=== PATIENT | male | born 1965 | race Caucasian/White ===

== ENCOUNTER 2024-03-03 19:38 | Emergency (ER) | payer OTHER, SELFPAY ==
[2024-03-03] VITALS (7 sets, daily range): BP systolic 126–157; BP diastolic 88–102
--- NOTE | 2024-03-03 20:47 | ED.GENMED ---
History of Present Illness
General
Chief Complaint: Blood Pressure Problem
Time Seen by Provider: 03/03/24 20:23
History of Present Illness
History of Present Illness:
58-year-old male history of CAD, hypertension presenting with high blood pressure. Patient states that he has been having episodes of dizziness and lightheadedness for the past 1 month. Patient states that after eating dinner, he felt dizzy and
lightheaded so he took his blood pressure was noted to be 159/94 prompting ED evaluation. Patient denies any chest pain, shortness of breath, headaches, numbness, weakness, tingling, or visual changes. Patient states that he is on lisinopril which
he has been taking as prescribed. Of note, patient states that he still a 'dizziness specialist' today and was told that he has a vestibular issue.
Past History
Past History
ED Past Medical History: CAD, HTN, Hypercholesterolemia and TN
ED Past Surgical History: Cardiac (2 stents)
Social History
Tobacco: Former smoker
Alcohol: None
Drug: None
Personal:
Living: with family
Family History
Family History: Early CAD
Phy Exam
Physical Exam
Physical Exam:
General: Alert, no acute distress
Head: NCAT
Eyes: clear conjunctiva, PERRLA, EOMI. No nystagmus
Neck: supple
Cardiac: regular rate and rhythm, no murmur
Lungs: clear to auscultation bilaterally. No wheezes, rales, or rhonchi. Speaking full unlabored sentences. No respiratory distress.
Abdomen: soft, nondistended nontender. No rebound or guarding.
MSK: no lower extremity edema bilaterally. No deformity
Skin: warm, dry. Not diaphoretic
Neuro: Alert and oriented x3. Cranial nerves II through XII grossly intact no focal deficits. Normal finger-nose and [id number]. 5-5 strength bilateral upper and lower extremities. No pronator drift. Sensation intact. No slurred speech.
Course
Orders/Labs/Results
Orders:
Orders
03/03/24 19:46
Electrocardiogram (*1) Urgent
Reason for Study: Hypertension, Benign
03/03/24 19:47
EKG- Treatment ONCE
03/03/24 20:46
CMP [Comprehensive Metabolic Panel] Urgent
Complete Blood Count/With Diff Urgent
03/03/24 20:47
0.9% Sodium Chloride 1000 ml [Nss] 1,000 ml IV BOLUS
Meclizine [Antivert] 25 mg PO NOW STA
03/03/24 21:20
Troponin I Urgent
Abnormal Lab Results
03/03/24
20:46
MCH 31.3 H pg
(27.0-31.0)
MPV 10.9 H fL
(7.4-10.4)
Absolute Neuts (auto) 7.0 H 10^3/uL
(1.4-6.5)
Absolute Monos (auto) 0.7 H 10^3/uL
(0.1-0.6)
Glucose 107 H mg/dl
(70-99)
ALT 52 H U/L
(0-50)
03/03/24 20:46
03/03/24 20:46
Vital Signs
Initial and Last Documented VS:
Initial Vital Signs
Temp Pulse Resp BP Pulse Ox
97.6 F 74 18 157/98 100
03/03/24 19:49 03/03/24 19:49 03/03/24 19:49 03/03/24 19:49 03/03/24 19:49
Last Documented Vital Signs
Temp Pulse Resp BP Pulse Ox
97.6 F 65 14 139/89 96
03/03/24 19:49 03/03/24 22:30 03/03/24 22:30 03/03/24 22:30 03/03/24 22:30
MDM/Problems Addressed
Differential Diagnosis Includes:
Electrolyte abnormality, anemia, vertigo, orthostatic hypotension, ALTA, arrhythmia
MDM/Problems Addressed:
Results reviewed. Hemoglobin 14.9. Electrolytes within normal limits. Troponin within normal limits. On reevaluation, patient reports improvement in symptoms. Blood pressure 128/65. Heart rate in 60s, normal sinus rhythm on monitor. Discussed
results with patient at bedside. ?Vertiginous symptoms causing elevated blood pressure. Advised to follow-up with primary care doctor and ob gyn. Discussed return precautions. Patient expressed verbal understanding.
*EKG
Interpreted by ED Provider?: Yes (EKG shows normal sinus rhythm at 63 bpm with OH 154 QTc 405 no acute ischemic changes)
*Critical Care Note
Total Time (30-74mins, 75-104mins- exclusive of procedures): Not Applicable
ED Attending Note
-
Portions of this chart may have been created with voice recognition software.� Occasional wrong word or��sound alike� substitutions may have occurred due to the inherent limitations of voice recognition software.
Discharge Plan
Departure
Patient Disposition: Home (Routine Discharge)
Date of Disposition: 03/03/24
Time of Disposition: 22:16
Patient with high blood pressure during this ER visit?: Yes
Discharge Problem:
Vertigo, Essential hypertension
Instructions: Vertigo ED, BLOOD PRESSURE
Prescriptions:
No Action
nitroglycerin 0.4 MG tablet, sublingual
0.4 mg sublingual [id number] PRN (Reason: chest pain) Qty: 30 0RF
atenolol 25 MG tablet
12.5 mg PO DAILY
Patient Comments:
takes half a 25mg tablet daily
aspirin 81 MG tablet,delayed release (DR/EC)
81 mg PO DAILY
Patient Comments:
Took 650mg today, normally takes 81mg daily
rosuvastatin 10 MG tablet
10 mg PO QPM
fish oil-dha-epa 1 EACH capsule
2 cap PO DAILY
clopidogrel 75 MG tablet
75 mg PO DAILY Qty: 90 3RF
pantoprazole [Protonix] 40 MG tablet,delayed release (DR/EC)
40 mg PO DAILY Qty: 60 3RF
Referrals:
Oleg Dickey MD [Family Provider] -
Activity Restrictions/Additional Instructions:
Continue taking blood pressure medications as prescribed
Take meclizine as needed for dizziness
Follow-up with ob gyn next week
Return to the emergency department chest pain, shortness of breath, numbness, weakness, tingling, visual changes, or new/worsening symptoms
Interventions
Interventions:
*Risk Screen - Suicide Last Done: 03/03/24 19:49
*General Assessment Last Done: 03/03/24 19:49
*Neglect/Abuse Screening Last Done: 03/03/24 20:58
ED- Fall Risk Assessment Last Done: 03/03/24 22:59
*ED COVID-19 Vaccine History Last Done: 03/03/24 19:49
*Nursing Disposition Last Done: 03/03/24 22:59
ED- Cardiac Assessment Last Done: 03/03/24 20:58
ED- Neurological Assessment Last Done: 03/03/24 20:58
ED- Pulmonary Assessment Last Done: 03/03/24 20:58
Discharge Date and Time
Discharge Date/Time: 03/03/24 23:00
Print Language: CHINESE
[2024-03-03] MEDS: ANTIVERT 25 MG PO (20:51)
[2024-03-03 20:54] LABS: % Basophils 0.6 % (0-2); % Immature Granulocytes 0.4 % (0-0.5); % Lymphocytes 24.1 % (20.5-51.1); % Monocytes 6.4 % (1.7-9.3); % Neutrophils 68.5 % (42.2-75.2); Absolute Basophils 0.1 10^3/uL (0-0.2); Absolute Lymphocytes 2.5 10^3/uL (1.2-3.4); Absolute Monocytes 0.7 10^3/uL (0.1-0.6); Hematocrit 43.2 % (39.0-52.0); Hemoglobin 14.9 g/dL (13.0-18.0); Mean Corp Hgb Conc. 34.5 g/dL (33.0-37.0); Mean Corpuscular Hgb 31.3 pg (27.0-31.0); Mean Corpuscular Volume 90.8 fL (80.0-94.0); Mean Platelet Volume 10.9 fL (7.4-10.4); Nucleated Red Blood Cells % 0 % (-); Platelet Count 213 10^3/uL (130-400); Red Blood Cell Count 4.76 10^6/uL (4.70-6.10); Red Cell Dist. Width 11.9 % (11.5-14.5); White Blood Cell Count 10.3 10^3/uL (4.8-10.8)
[2024-03-03] MEDS: NSS 1000 IV (20:56)
[2024-03-03 21:06] LABS: ALT (SGPT) 52 U/L (0-50); AST (SGOT) 41 U/L (17-59); Albumin 4.8 g/dl (3.5-5.0); Alkaline Phosphatase 89 U/L (38-126); Blood Urea Nitrogen 13 mg/dl (9-20); Calcium 9.6 mg/dl (8.4-10.2); Carbon Dioxide 29 mmol/L (22-30); Chloride 101 mmol/L (98-107); Glucose 107 mg/dl (70-99); Potassium 3.6 mmol/L (3.5-5.1); Sodium 141 mmol/L (135-145); Total Bilirubin 0.5 mg/dl (0.2-1.3); Total Protein 7.2 g/dl (6.3-8.2); eGFR > 60.00
[2024-03-03 21:52] LABS: Troponin I < 0.012 ng/ml
== END 2024-03-03 23:00 | disposition home or self-care (01) ==
LOC: EMR 19:38
PROVIDERS: Emergency Medicine; EMERGENCY PHYSICIAN Emergency Medicine; FAMILY PHYSICIAN Internal Medicine
DX: R42 Dizziness and giddiness (principal); I10 Essential (primary) hypertension; I25.10 Atherosclerotic heart disease of native coronary artery without angina pectoris; E78.00 Pure hypercholesterolemia, unspecified; I25.2 Old myocardial infarction; Z82.49 Family history of ischemic heart disease and other diseases of the circulatory system; Z87.891 Personal history of nicotine dependence; Z95.5 Presence of coronary angioplasty implant and graft
CPT/HCPCS: 99283; 96360; 80053; 84484; 85025; 93005